=== PATIENT | male | born 1990 | race Two or more races ===

== ENCOUNTER 2018-09-18 00:06 | Emergency (ER) | payer SELFPAY ==
[~2018-09-18] VITALS: Ht 172.7 cm; Wt 68.0 kg
[2018-09-18] MEDS ORDERED: HYDROCODONE/ACETAMINOPHEN 5/325MG TABLET PO ONE (00:30)
[2018-09-18 02:46] VITALS: BP 126/64
== END 2018-09-18 02:47 | disposition home or self-care (01) ==
LOC: ER 00:06
DX: S20.211A Contusion of right front wall of thorax, initial encounter (principal); R06.02 Shortness of breath; V49.49XA Driver injured in collision with other motor vehicles in traffic accident, initial encounter; Y93.89 Activity, other specified; Y92.89 Other specified places as the place of occurrence of the external cause; Y99.8 Other external cause status
CPT/HCPCS: 71250; 99284